=== PATIENT | female | born 1955 | race Caucasian/White ===

== ENCOUNTER 2021-09-19 17:21 | Emergency (ER) | payer SELFPAY ==
[2021-09-19 18:08] LABS: #Basophils 0.1 10x3/uL (0.0-0.2); #Eosinphils 0.1 10x3/uL (0.0-0.5); #Monocytes 0.7 10x3/uL (0.0-1.1); #Neutrophils 3.8 10x3/uL (1.5-8.4); %Basophils 1.2 % (0.0-2.0); %Eosinophils 1.6 % (0.0-6.0); %Lymphocytes 30.7 % (18.0-47.0); %Monocytes 9.8 % (0.0-10.0); %Neutrophils 56.4 % (40.0-75.0); Hemoglobin 13.6 g/dL (12.0-15.5); Mean Corpuscular HGB CONC 34.3 g/dL (32.0-36.0); Mean Corpuscular Volume 96.4 fl (81.6-98.3); Platelet Count 262 10x3/uL (150-450); RBC Distribution Width 12.7 % (11.5-14.5); Red Blood Cell (RBC) Count 4.12 10x6/uL (3.90-5.03); White Blood Cell (WBC) Count 6.8 10x3/uL (3.5-10.5)
[2021-09-19 18:20] LABS: ALT (SGPT) 33 U/L (8-55); AST (SGOT) 38 U/L (5-34); Albumin 4.9 g/dL (3.4-4.8); Alkaline Phosphatase 89 U/L (40-110); Anion Gap 16 mmol/L (10-20); BUN (Urea Nitrogen) 17 mg/dL (9.8-20.1); Bilirubin, Total 1.2 mg/dL (0.2-1.2); Calc. Creatinine Clearance 0 mL/min (70-130); Calcium 10.2 mg/dL (7.8-10.44); Carbon Dioxide 30 mmol/L (23-31); Chloride 102 mmol/L (98-107); Estimated GFR 92; Globulin 3.3 g/dL (2.4-3.5); Glucose 101 mg/dL (80-115); Potassium 4.4 mmol/L (3.5-5.1); Protein, Total 8.2 g/dL (5.8-8.1); Sodium 144 mmol/L (136-145)
== END 2021-09-19 21:32 | disposition home or self-care (01) ==
LOC: CSHERS 17:21
DX: R20.2 Paresthesia of skin (principal)
CPT/HCPCS: 36415; 70450; 71045; 80053; 83690; 83735; 84484; 85025; 93005

== ENCOUNTER 2021-10-06 12:28 | Emergency (ER) | payer OTHER, SELFPAY ==
[~2021-10-06 12:28] MED LIST: Iopamidol 300 61% 100 ML VIAL FS ONE
[2021-10-06 13:09] LABS: #Eosinphils 0.2 10x3/uL (0.0-0.5); #Monocytes 0.4 10x3/uL (0.0-1.1); #Neutrophils 2.4 10x3/uL (1.5-8.4); %Basophils 0.6 % (0.0-2.0); %Eosinophils 3.9 % (0.0-6.0); %Lymphocytes 40.7 % (18.0-47.0); %Monocytes 7.5 % (0.0-10.0); %Neutrophils 46.7 % (40.0-75.0); Hemoglobin 12.1 g/dL (12.0-15.5); Mean Corpuscular HGB CONC 34.4 g/dL (32.0-36.0); Mean Corpuscular Hemoglobin 32.5 pg (27.0-33.0); Mean Corpuscular Volume 94.6 fl (81.6-98.3); Mean Platelet Volume 10.9 fl (7.4-10.4); Platelet Count 159 10x3/uL (150-450); RBC Distribution Width 12.2 % (11.5-14.5); Red Blood Cell (RBC) Count 3.72 10x6/uL (3.90-5.03); White Blood Cell (WBC) Count 5.2 10x3/uL (3.5-10.5)
[2021-10-06 13:19] LABS: ALT (SGPT) 19 U/L (8-55); AST (SGOT) 22 U/L (5-34); Albumin 3.8 g/dL (3.4-4.8); Alkaline Phosphatase 56 U/L (40-110); Anion Gap 8 mmol/L (10-20); BUN (Urea Nitrogen) 11 mg/dL (9.8-20.1); Bilirubin, Total 0.5 mg/dL (0.2-1.2); Calc. Creatinine Clearance 0 mL/min (70-130); Calcium 8.9 mg/dL (7.8-10.44); Carbon Dioxide 30 mmol/L (23-31); Chloride 106 mmol/L (98-107); Estimated GFR 99; Globulin 2.4 g/dL (2.4-3.5); Glucose 91 mg/dL (80-115); Potassium 3.8 mmol/L (3.5-5.1); Protein, Total 6.2 g/dL (5.8-8.1); Sodium 140 mmol/L (136-145)
[2021-10-06] MEDS ORDERED: Ketorolac Tromethamine 30 MG/ML VIAL ONE (14:11)
[2021-10-06] MEDS ORDERED: Acetaminophen 500 MG TAB ONE (14:11)
[2021-10-06 14:46] LABS: Bilirubin Neg (Negative); Blood, Urine Negative (Negative); Clarity Clear (Clear); Glucose, Urine (Dipstick) Normal (Negative); Ketone, Urine Negative (Negative); Leukocyte Negative (Negative); Nitrite Negative (Negative); Protein, Urine (Dipstick) Negative (Neg-Trace); Urobilinogen Normal mg/dL (Less than 2)
== END 2021-10-06 14:45 | disposition home or self-care (01) ==
LOC: CSHERS 12:28
DX: S70.01XA Contusion of right hip, initial encounter (principal); R73.03 Prediabetes; J45.909 Unspecified asthma, uncomplicated; V29.9XXA Motorcycle rider (driver) (passenger) injured in unspecified traffic accident, initial encounter
CPT/HCPCS: 70450; 71045; 71260; 72125; 72170; 74177; 80053; 81003; 85025; 96374; G0390; J1885; Q9967

== ENCOUNTER 2021-10-17 13:22 | Observation (INO) | payer SELFPAY ==
[2021-10-17 14:14] LABS: #Eosinphils 0.2 10x3/uL (0.0-0.5); #Monocytes 0.4 10x3/uL (0.0-1.1); #Neutrophils 2.9 10x3/uL (1.5-8.4); %Basophils 0.8 % (0.0-2.0); %Eosinophils 4.5 % (0.0-6.0); %Lymphocytes 27.2 % (18.0-47.0); %Monocytes 7.4 % (0.0-10.0); %Neutrophils 59.9 % (40.0-75.0); Hemoglobin 12.3 g/dL (12.0-15.5); Mean Corpuscular HGB CONC 34.7 g/dL (32.0-36.0); Mean Corpuscular Hemoglobin 32.9 pg (27.0-33.0); Mean Corpuscular Volume 94.7 fl (81.6-98.3); Mean Platelet Volume 9.8 fl (7.4-10.4); Platelet Count 154 10x3/uL (150-450); RBC Distribution Width 12.7 % (11.5-14.5); Red Blood Cell (RBC) Count 3.74 10x6/uL (3.90-5.03); White Blood Cell (WBC) Count 4.9 10x3/uL (3.5-10.5)
[2021-10-17] MEDS ORDERED: Aspirin Chewable 81 MG TAB ONE (14:57)
[2021-10-17 15:03] LABS: ALT (SGPT) 26 U/L (8-55); AST (SGOT) 37 U/L (5-34); Albumin 4.2 g/dL (3.4-4.8); Alkaline Phosphatase 103 U/L (40-110); Anion Gap 13 mmol/L (10-20); BUN (Urea Nitrogen) 17 mg/dL (9.8-20.1); Bilirubin, Total 1.4 mg/dL (0.2-1.2); Calc. Creatinine Clearance 0 mL/min (70-130); Calcium 9.4 mg/dL (7.8-10.44); Carbon Dioxide 29 mmol/L (23-31); Chloride 100 mmol/L (98-107); Estimated GFR 100; Globulin 2.9 g/dL (2.4-3.5); Glucose 153 mg/dL (80-115); Potassium 3.7 mmol/L (3.5-5.1); Protein, Total 7.1 g/dL (5.8-8.1); Sodium 138 mmol/L (136-145)
[2021-10-17 19:27] LABS: Troponin I Less than 0.010 ng/mL (< 0.028)
[2021-10-17 20:54] VITALS: BMI 25.7
[2021-10-17 21:44] LABS: Troponin I Less than 0.010 ng/mL (< 0.028)
[2021-10-17 22:38] LABS: SARS-CoV-2 NAA Rapid Test Not Detected (NotDetected)
[2021-10-17] MEDS ORDERED: Acetaminophen 325 MG TAB PO PRN (23:46)
[2021-10-18] MEDS ORDERED: Enoxaparin Sodium 40 MG/0.4 ML SYRINGE SC SCH (09:00)
[2021-10-18] MEDS ORDERED: Ketorolac Tromethamine 30 MG/ML VIAL IVP PRN (10:40)
[2021-10-18 17:00] VITALS: BP 137/77; TEMP 97.3
== END 2021-10-18 18:01 | disposition home or self-care (01) ==
LOC: CSHERS 13:22 → CSHTELE 20:09
PROVIDERS: ADMIT Family Medicine; ATTEND Nurse Practitioner Family
DX: R07.89 Other chest pain (principal); M25.551 Pain in right hip; M48.9 Spondylopathy, unspecified; J45.909 Unspecified asthma, uncomplicated; G89.29 Other chronic pain; M54.50 Low back pain, unspecified; R10.31 Right lower quadrant pain; Z20.822 Contact with and (suspected) exposure to COVID-19; Z79.899 Other long term (current) drug therapy; V19.49XA Pedal cycle driver injured in collision with other motor vehicles in traffic accident, initial encounter
CPT/HCPCS: 36415; 71045; 72170; 74176; 80053; 83880; 84484; 85025; 93005; 93010; 93306; 96372; G0378; J1650; U0002

== ENCOUNTER 2022-10-25 22:02 | Emergency (ER) | payer MEDICARE ==
[2022-10-25] MEDS ORDERED: Morphine 4 MG/ML VIAL ONE (22:36)
[2022-10-25 22:56] LABS: ALT (SGPT) 17 U/L (8-55); AST (SGOT) 21 U/L (5-34); Alkaline Phosphatase 74 U/L (40-110); Anion Gap 13 mmol/L (10-20); BUN (Urea Nitrogen) 13 mg/dL (9.8-20.1); Bilirubin, Total 0.5 mg/dL (0.2-1.2); Calc. Creatinine Clearance 0 mL/min (70-130); Calcium 8.6 mg/dL (7.8-10.44); Carbon Dioxide 24 mmol/L (23-31); Chloride 107 mmol/L (98-107); Estimated GFR 97; Globulin 2.5 g/dL (2.4-3.5); Glucose 100 mg/dL (80-115); Potassium 3.4 mmol/L (3.5-5.1); Protein, Total 6.5 g/dL (5.8-8.1); Sodium 141 mmol/L (136-145)
[2022-10-25 23:24] LABS: #Eosinphils 0.4 10x3/uL (0.0-0.5); #Monocytes 0.6 10x3/uL (0.0-1.1); #Neutrophils 4.4 10x3/uL (1.5-8.4); %Basophils 0.6 % (0.0-2.0); %Eosinophils 4.9 % (0.0-6.0); %Lymphocytes 25.2 % (18.0-47.0); %Monocytes 8.5 % (0.0-10.0); %Neutrophils 60.5 % (40.0-75.0); Hematocrit 35.1 % (34.9-44.5); Hemoglobin 12.2 g/dL (12.0-15.5); Mean Corpuscular HGB CONC 34.8 g/dL (32.0-36.0); Mean Corpuscular Hemoglobin 32.6 pg (27.0-33.0); Mean Corpuscular Volume 93.9 fl (81.6-98.3); Mean Platelet Volume 10.2 fl (7.4-10.4); Platelet Count 195 10x3/uL (150-450); RBC Distribution Width 12.2 % (11.5-14.5); Red Blood Cell (RBC) Count 3.74 10x6/uL (3.90-5.03); White Blood Cell (WBC) Count 7.2 10x3/uL (3.5-10.5)
== END 2022-10-25 23:46 | disposition short-term general hospital (02) ==
LOC: CSHERS 22:02
DX: S72.142A Displaced intertrochanteric fracture of left femur, initial encounter for closed fracture (principal); V87.8XXA Person injured in other specified noncollision transport accidents involving motor vehicle (traffic), initial encounter; Y93.55 Activity, bike riding
CPT/HCPCS: 71045; 80053; 85025; 93005; 96374; J2270

== ENCOUNTER 2025-02-17 10:19 | Observation (INO) | payer MEDICARE ==
[~2025-02-17 10:19] MED LIST changes: -Iopamidol 300 61% 100 ML VIAL FS ONE; +Iopamidol 370 76% 100 ML VIAL ONE
[2025-02-17 11:39] LABS: #Basophils 0.05 10x3/uL (0.0-0.2); #Eosinophils 0.07 10x3/uL (0.0-0.5); #Monocytes 0.50 10x3/uL (0.0-1.1); #Neutrophils 2.66 10x3/uL (1.5-8.4); %Basophils 1.0 % (0.0-2.0); %Eosinophils 1.3 % (0.0-6.0); %Lymphocytes 37.5 % (18.0-47.0); %Monocytes 9.5 % (0.0-10.0); %Neutrophils 50.5 % (40.0-75.0); Hematocrit 37.9 % (34.9-44.5); Hemoglobin 13.2 g/dL (12.0-15.5); Mean Corpuscular Hemoglobin 33.1 pg (27.0-33.0); Mean Corpuscular Volume 95.0 fL (81.6-98.3); Platelet Count 187 10x3/uL (150-450); Red Blood Cell (RBC) Count 3.99 10x6/uL (3.90-5.03); White Blood Cell (WBC) Count 5.26 10x3/uL (3.5-10.5)
[2025-02-17 11:57] LABS: ALT (SGPT) 67 U/L (Less than 34); AST (SGOT) 56 U/L (11-34); Albumin 4.2 g/dL (3.1-4.5); Alkaline Phosphatase 73 U/L (40-110); Anion Gap 13 mmol/L (10-20); BUN (Urea Nitrogen) 18 mg/dL (9.8-20.1); Bilirubin, Total 0.8 mg/dL (0.3-1.2); Calc. Creatinine Clearance 0 mL/min (70-130); Calcium 9.3 mg/dL (7.8-10.44); Carbon Dioxide 26 mmol/L (23-31); Chloride 102 mmol/L (98-107); Globulin 2.8 g/dL (2.4-3.5); Glucose 99 mg/dL (80-115); Potassium 4.2 mmol/L (3.5-5.1); Sodium 137 mmol/L (136-145)
[2025-02-17 12:04] LABS: Troponin I Less than 0.010 ng/mL (< 0.028)
[2025-02-17 12:58] LABS: Acetaminophen Less than 10 mcg/mL (Less than 10); Salicylate Less than 8.0 mg/dL (Less than 8.0)
[2025-02-17 13:03] LABS: Cocaine Metabolite Screen Negative (Negative); THC/Cannabinoid Screen Negative (Negative); Tricyclic Screen Negative (Negative)
[2025-02-17] MEDS ORDERED: Senokot S 8.6-50 MG TAB PO PRN (17:06)
[2025-02-17] MEDS ORDERED: Ondansetron PF 4 MG/2 ML Vial IVP PRN (17:06)
[2025-02-17] MEDS ORDERED: Melatonin 3 MG TAB PO PRN (17:06)
[2025-02-17] MEDS ORDERED: Acetaminophen 325 MG TAB PO PRN (17:06)
[2025-02-17] MEDS ORDERED: hydrALAZINE 20 MG/ML VIAL SLOW IVP PRN (17:06)
[2025-02-17 20:05] VITALS: BMI 25.0
[2025-02-17] MEDS: Aspirin 81 mg Enteric Coated Tablet PO SCH (20:14)
[2025-02-17] MEDS ORDERED: PNEUMOC 20-VAL CONJ-DIP CRM/PF 0.5 ML SYRINGE IM ONE (20:45)
[2025-02-17] MEDS ORDERED: FLU (Fluad Triv) 25-26 (65UP)PF 45 MCG/0.5 ML Syringe IM ONE (20:45)
[2025-02-18 05:00] LABS: #Basophils 0.05 10x3/uL (0.0-0.2); #Eosinophils 0.32 10x3/uL (0.0-0.5); #Monocytes 0.59 10x3/uL (0.0-1.1); #Neutrophils 1.16 10x3/uL (1.5-8.4); %Basophils 1.2 % (0.0-2.0); %Eosinophils 7.8 % (0.0-6.0); %Lymphocytes 47.9 % (18.0-47.0); %Monocytes 14.4 % (0.0-10.0); %Neutrophils 28.5 % (40.0-75.0); Hematocrit 36.0 % (34.9-44.5); Hemoglobin 12.5 g/dL (12.0-15.5); Mean Corpuscular Hemoglobin 33.0 pg (27.0-33.0); Mean Corpuscular Volume 95.0 fL (81.6-98.3); Platelet Count 163 10x3/uL (150-450); Red Blood Cell (RBC) Count 3.79 10x6/uL (3.90-5.03); White Blood Cell (WBC) Count 4.09 10x3/uL (3.5-10.5)
[2025-02-18 05:16] LABS: Anion Gap 11 mmol/L (10-20); BUN (Urea Nitrogen) 16 mg/dL (9.8-20.1); Calc. Creatinine Clearance 101 mL/min (70-130); Calcium 9.0 mg/dL (7.8-10.44); Carbon Dioxide 27 mmol/L (23-31); Cardiac Risk 1.7 (Less than 4.5); Chloride 104 mmol/L (98-107); Cholesterol 176 mg/dl (< 200 Desired); Glucose 145 mg/dL (80-115); HDL Cholesterol 103 mg/dL (>60 Neg Risk); LDL Cholesterol, Calculated 66 mg/dL; Potassium 4.2 mmol/L (3.5-5.1); Sodium 138 mmol/L (136-145); Triglycerides 35 mg/dL (Less than 150)
[2025-02-18] MEDS ORDERED: Aspirin 81 mg Enteric Coated Tablet PO SCH (09:00)
[2025-02-18 14:09] VITALS: BP 108/65; TEMP 99.5
== END 2025-02-18 14:28 | disposition left against medical advice (07) ==
LOC: CSHERS 10:19 → CSHTELE 16:36
PROVIDERS: ADMIT Student in an Organized Health Care Education/Training Program; ATTEND Student in an Organized Health Care Education/Training Program
DX: R42 Dizziness and giddiness (principal); R73.03 Prediabetes; J45.909 Unspecified asthma, uncomplicated; Z79.82 Long term (current) use of aspirin; Z79.899 Other long term (current) drug therapy; Z98.890 Other specified postprocedural states
CPT/HCPCS: 36415; 70496; 70498; 71045; 80048; 80053; 80061; 80306; 80307; 83036; 83880; 84443; 84484; 85025; 93005; Q9967